=== PATIENT | male | born 1990 | race American Indian/Alaskan Native ===

== ENCOUNTER 2020-08-09 13:28 | Outpatient (CLI) | payer OTHER ==
--- NOTE | 2020-08-09 16:26 | Ultrasound Report ---
ULTRASOUND TESTICULAR DOPPLER COMPLETE HISTORY: Testicular pain TECHNIQUE: Grayscale ultrasound with color and spectral Doppler interrogation. COMPARISON: None. FINDINGS: The testes and epididymides are normal size, contour and echotexture. No evidence for mass, cyst, waldemar cifications or torsion. No significant hydrocele. A small left varicocele is suspected. A mild degree of peristalsing bowel loops were identified in the left scrotal sac during Valsalva man euver. IMPRESSION: Small left inguinal hernia containing bowel loops as described. Unremarkable testes and epididymides. Signer Name: Ayaan Rodriguez Jr, MD Signed: 08/09/2020 4:21 PM Workstation Name: [id number]
== END 2020-08-09 13:29 | disposition home or self-care (01) ==
LOC: US 13:28
PROVIDERS: ATTEND Family Medicine
DX: N50.819 Testicular pain, unspecified (principal)
CPT/HCPCS: 93975